=== PATIENT | female | born 1985 | race Caucasian/White ===

== ENCOUNTER 2019-10-08 13:35 | Emergency (ER) | payer OTHER ==
--- NOTE | 2019-10-08 14:19 | XRAY Report ---
Reason: Chest pain Procedure Date: 10/08/2019 Accession Number: [id number] / [id number] Procedure: XR - Chest 1 View X-Ray CPT Code: 26635 Final Report FULL RESULT: EXAM: CHEST RADIOGRAPHY EXAM DATE: 10/08/2019 02:03 PM. CLINICAL HISTORY: Chest pain. COMPARISON: None. TECHNIQUE: 1 view. FINDINGS: Lungs/Pleura: No focal opacities evident. No pleural effusion. No pneumothorax. Mediastinum: Within exam limitations, the cardiomediastinal contour is normal. Other: None. IMPRESSION: Normal single view chest. RADIA
[2019-10-08 14:29] LABS: BASOPHILS % (AUTO) 0.5 %; EOSINOPHILS % (AUTO) 0.5 %; HGB - HEMOGLOBIN 13.8 g/dL (12.0-16.0); LYMPHOCYTES # (AUTO) 1.5 10^3/uL (1.5-3.5); LYMPHOCYTES % (AUTO) 38.7 %; MEAN CORPUSCULAR HEMOGLOBIN 33.4 pg (27.0-31.0); MEAN CORPUSCULAR HGB CONC 33.3 g/dL (32.0-36.0); MEAN CORPUSCULAR VOLUME 100.2 fL (81.0-99.0); MEAN PLATELET VOLUME 10.4 fL (7.9-10.8); MONOCYTES # (AUTO) 0.2 10^3/uL (0.0-1.0); MONOCYTES % (AUTO) 5.9 %; NEUTROPHILS # (AUTO) 2.1 10^3/uL (1.5-6.6); NEUTROPHILS % (AUTO) 54.1 %; PLT - PLATELET COUNT 279 10^3/uL (130-450); RED BLOOD COUNT 4.13 10^6/uL (4.20-5.40); WHITE BLOOD COUNT 3.9 x10^3/uL (4.8-10.8)
[2019-10-08 14:48] LABS: ALBUMIN/GLOBULIN RATIO 1.9 (1.0-2.2); BILIRUBIN,TOTAL 0.5 mg/dL (0.2-1.0); CALCIUM 9.4 mg/dL (8.5-10.3); CREATININE 0.6 mg/dL (0.4-1.0); TOTAL PROTEIN 7.6 g/dL (6.7-8.2)
[2019-10-08] MEDS ORDERED: CHERRY SYRUP 10 ML UDC PO ONE (16:55)
[2019-10-08] MEDS ORDERED: CETIRIZINE 10 MG TABLET PO STA (16:55)
[2019-10-08] MEDS ORDERED: DEXAMETHASONE 10 MG/ML VIAL PO STA (16:55)
--- NOTE | 2019-10-08 16:57 | ED Physician Documentation ---
PD HPI DYSPNEA - Stated complaint Stated Complaint: CHEST TIGHTNESS,SOA,LIGHTHEADED - Chief complaint Chief Complaint: Cardiac - History obtained from History obtained from: Patient - History of Present Illness Timing - onset: How many days ago (several days of feeling dyspnea, lightheaded and heart racing. Has had it brief episodes, not correlated with exertion/activity, for couple of months, minutes to hour at a time. More consistent the past few days. Had some feeling of lightheadedness worse today.) Timing - onset during: Light activity Timing - duration: Minutes, Hours Timing - details: Gradual onset, Intermittant Inciting event(s): No: URI Improved by: Rest Worsened by: No: Exertion Associated symptoms: Palpitations. No: Fever, Cough, Wheezing, Bilateral edema Similar symptoms before: Has not had sx before Recently seen: Not recently seen Review of Systems Constitutional: reports: Fatigue, Weight Loss (poor appetite). denies: Fever, Chills, Myalgias Nose: denies: Rhinorrhea / runny nose, Congestion Throat: denies: Sore throat Cardiac: denies: Chest pain / pressure Respiratory: reports: Dyspnea, Cough GI: denies: Abdominal Pain, Nausea, Vomiting, Diarrhea : denies: Discharge Neurologic: reports: Generalized weakness. denies: Focal weakness, Numbness Psychiatric: denies: Depressed, Anxiety, Insomnia Endocrine: reports: Weight loss. denies: Weight gain, Easy bruising / bleeding Immunocompromised: denies: Immunocompromised PD PAST MEDICAL HISTORY - Past Medical History Past Medical History: No Neuro: None Endocrine/Autoimmune: None - Past Surgical History Past Surgical History: No - Present Medications Home Medications: Ambulatory Orders Medication Instructions Recorded Confirmed Albuterol Sulfate [Albuterol 2 puffs IH QID #1 hfa.aer.ad 10/08/19 Sulfate Hfa] Cetirizine [ZyrTEC] 10 mg PO DAILY #15 tablet 10/08/19 dexAMETHasone [Decadron] 4 mg PO DAILY #5 tablet 10/08/19 - Allergies Allergies/Adverse Reactions: Allergies Allergy/AdvReac Type Severity Reaction Status Date / Time No Known Drug Allergies Allergy Verified 10/08/19 13:47 - Living Situation Living Situation: reports: With spouse/s.o. Living Arrangement: reports: At home - Social History Does the pt smoke?: No Smoking Status: Never smoker Does the pt drink ETOH?: No Does the pt have substance abuse?: No - Family History Family history: denies: Cancer PD ED PE NORMAL - Vitals Vital signs reviewed: Yes - General General: Alert and oriented X 3, No acute distress, Well developed/nourished - HEENT HEENT: Moist mucous membranes, Pharynx benign - Neck Neck: Supple, no meningeal sign, No adenopathy, Thyroid normal - Cardiac Cardiac: RRR, No murmur - Respiratory Respiratory: Clear bilaterally - Abdomen Abdomen: Normal bowel sounds, Soft, Non tender, Non distended, No organomegaly - Female Female : Deferred - Rectal Rectal: Deferred - Back Back: No CVA TTP - Derm Derm: Normal color, Warm and dry - Extremities Extremities: No edema, No calf tenderness / cord - Neuro Neuro: Alert and oriented X 3, No motor deficit, Normal speech Results - Vitals Vitals: Oxygen O2 Source Room air - Labs Labs: Laboratory Tests 10/08/19 10/08/19 10/08/19 14:15 14:15 14:15 WBC 3.9 L RBC 4.13 L Hgb 13.8 Hct 41.4 MCV 100.2 H MCH 33.4 H MCHC 33.3 RDW 12.0 Plt Count 279 MPV 10.4 Neut # (Auto) 2.1 Lymph # (Auto) 1.5 Garza # (Auto) 0.2 Eos # (Auto) 0.0 Baso # (Auto) 0.0 Absolute Nucleated RBC 0.00 Nucleated RBC % 0.0 ESR Sodium 142 Potassium 4.2 Chloride 107 Carbon Dioxide 24 Anion Gap 11.0 BUN 7 Creatinine 0.6 Estimated GFR (MDRD) 113 Glucose 109 H Calcium 9.4 Magnesium Total Bilirubin 0.5 AST 14 ALT 12 Alkaline Phosphatase 35 L Troponin I High Sens 3.5 Total Protein 7.6 Albumin 5.0 Globulin 2.6 Albumin/Globulin Ratio 1.9 Lipase 35 Vitamin B12 TSH 10/08/19 10/08/19 10/08/19 14:15 14:15 14:15 WBC RBC Hgb Hct MCV MCH MCHC RDW Plt Count MPV Neut # (Auto) Lymph # (Auto) [place] # (Auto) Eos # (Auto) Baso # (Auto) Absolute Nucleated RBC Nucleated RBC % ESR 1 Sodium Potassium Chloride Carbon Dioxide Anion Gap BUN Creatinine Estimated GFR (MDRD) Glucose Calcium Magnesium 2.4 Total Bilirubin AST ALT Alkaline Phosphatase Troponin I High Sens Total Protein Albumin Globulin Albumin/Globulin Ratio Lipase Vitamin B12 TSH 0.93 10/08/19 14:15 WBC RBC Hgb Hct MCV MCH MCHC RDW Plt Count MPV Neut # (Auto) Lymph # (Auto) [place] # (Auto) Eos # (Auto) Baso # (Auto) Absolute Nucleated RBC Nucleated RBC % ESR Sodium Potassium Chloride Carbon Dioxide Anion Gap BUN Creatinine Estimated GFR (MDRD) Glucose Calcium Magnesium Total Bilirubin AST ALT Alkaline Phosphatase Troponin I High Sens Total Protein Albumin Globulin Albumin/Globulin Ratio Lipase Vitamin B12 160 L TSH PD MEDICAL DECISION MAKING - ED course Complexity details: reviewed results, considered differential (She has been having dyspnea with some congestion but really not much coughing. No fevers or other cold symptoms per se. She has not had any recent travel. PERC score is negative chest x-ray EKG and blood tests are normal. Thyroid is normal as well. We can treat her for possible allergies as she has had some in the past. Can try some cetirizine and an inhaler and see how it does on her breathing.), d/w patient Departure - Departure Disposition: Home, Self Care Clinical Impression: Dyspnea Qualifiers: Dyspnea type: shortness of breath Qualified Code(s): R06.02 - Shortness of breath Condition: Stable Record reviewed to determine appropriate education?: Yes Instructions: ED Dyspnea Shortness of Breath Follow-Up: [facility] [Provider Group] Prescriptions: Albuterol Sulfate [Albuterol Sulfate Hfa] 2 puffs IH QID #1 hfa.aer.ad Cetirizine [ZyrTEC] 10 mg PO DAILY #15 tablet dexAMETHasone [Decadron] 4 mg PO DAILY #5 tablet Comments: Your EKG, chest x-ray, blood tests are normal including blood count electrolytes kidney function thyroid screen and inflammatory markers. Also no signs of heart muscle irritation. At this point we can presume may be some allergies and an effect in the bronchials. I would suggest trying a antihistamine such as cetirizine daily or every other day. Decadron steroid for bronchial inflammation daily for 5 more days. Use albuterol inhaler 2 puffs 3 or 4 times a day for the next week or so. Follow-up with your primary care in about a week, call for an appointment. Discharge Date/Time: 10/08/19 17:09
[2019-10-08 17:11] VITALS: BP 128/65
== END 2019-10-08 17:09 | disposition home or self-care (01) ==
LOC: ED 13:35
DX: R06.02 Shortness of breath (principal)
CPT/HCPCS: 36415; 71045; 82607; 82652; 83690; 83735; 84484; 85651; 93005; 99284; A9270; 80053; 84443; 85025

== ENCOUNTER 2020-06-02 00:59 | Emergency (ER) | payer OTHER ==
--- NOTE | 2020-06-02 01:23 | ED Physician Documentation ---
PD HPI SYNCOPE - Stated complaint Stated Complaint: DIZZY, VISION CHANGES - Chief complaint Chief Complaint: Neuro - History obtained from History obtained from: Patient - History of Present Illness Timing - onset: Enter time (23:30) Associated symptoms: Vision changes, Nausea / vomiting (nausea, no vomiting) Contributing factors: None Injury occurred: None Pain level max: 0 Pain level now: 0 Similar symptoms before: Has not had sx before Recently seen: Not recently seen - Additional information Additional information: 11:30 PM tonight while at rest at home watching TV, sudden onset lightheadedness, mild nausea, dimmed peripheral ("tunnel") vision. She felt as though she might pass out. She felt some improvement when walking around but symptoms waxed and waned, subsequently developed generalized tremulousness. She did not lose consciousness. Symptoms have resolved by the time of this ED evaluation Review of Systems Constitutional: reports: Sweats. denies: Fever, Chills Cardiac: reports: Reviewed and negative Respiratory: reports: Reviewed and negative GI: reports: Nausea. denies: Abdominal Pain, Vomiting : denies: Dysuria, Frequency, Now EGA Neurologic: reports: Near syncope. denies: Generalized weakness, Focal weakness, Numbness, Headache PD PAST MEDICAL HISTORY - Past Medical History Neuro: None Endocrine/Autoimmune: None - Past Surgical History Past Surgical History: No - Present Medications Home Medications: Ambulatory Orders Medication Instructions Recorded Confirmed Omeprazole 20 mg PO DAILY 06/02/20 06/02/20 - Allergies Allergies/Adverse Reactions: Allergies Allergy/AdvReac Type Severity Reaction Status Date / Time No Known Drug Allergies Allergy Verified 06/02/20 01:12 - Social History Does the pt smoke?: No Smoking Status: Never smoker Does the pt drink ETOH?: No Does the pt have substance abuse?: No PD ED PE NORMAL - Vitals Vital signs reviewed: Yes - General General: Alert and oriented X 3, No acute distress, Well developed/nourished - HEENT HEENT: PERRL, EOMI, Moist mucous membranes - Neck Neck: Supple, no meningeal sign - Cardiac Cardiac: RRR, No murmur, No gallop, No rub - Respiratory Respiratory: No respiratory distress, Clear bilaterally - Abdomen Abdomen: Soft, Non tender - Extremities Extremities: No edema - Neuro Neuro: Alert and oriented X 3, pivot end polisher 2-12 intact, No motor deficit, No sensory deficit, Normal speech Eye Opening: Spontaneous Motor: Obeys Commands Verbal: Oriented GCS Score: 15 Results - Vitals Vitals: Oxygen O2 Source Room air - EKG (time done) No standard instances Rate: Rate (enter#) (78) Rhythm: NSR [place]: Normal Intervals: Normal [place] QRS: Normal Ischemia: Normal ST segments - Labs Labs: Laboratory Tests 06/02/20 06/02/20 06/02/20 01:40 01:40 02:30 WBC 8.4 RBC 3.71 L Hgb 12.5 Hct 37.0 MCV 99.7 H MCH 33.7 H MCHC 33.8 RDW 12.1 Plt Count 244 MPV 10.1 Neut # (Auto) 6.6 Lymph # (Auto) 1.3 L [place] # (Auto) 0.4 Eos # (Auto) 0.0 Baso # (Auto) 0.0 Absolute Nucleated RBC 0.00 Nucleated RBC % 0.0 Sodium Potassium Chloride Carbon Dioxide Anion Gap BUN Creatinine Estimated GFR (MDRD) Glucose Calcium Total Bilirubin AST ALT Alkaline Phosphatase Total Protein Albumin Globulin Albumin/Globulin Ratio Lipase Urine Color YELLOW Urine Clarity CLEAR Urine pH 6.0 Ur Specific [place] 1.010 1.010 Urine Protein NEGATIVE Urine Glucose (UA) NEGATIVE Urine Ketones NEGATIVE Urine Occult Blood NEGATIVE Urine Nitrite NEGATIVE Urine Bilirubin NEGATIVE Urine Urobilinogen 0.2 (NORMAL) Ur Leukocyte Esterase NEGATIVE Ur Microscopic Review NOT INDICATED Urine Culture Comments NOT INDICATED Urine HCG, Qual NEGATIVE 06/02/20 02:30 WBC RBC Hgb Hct MCV MCH MCHC RDW Plt Count MPV Neut # (Auto) Lymph # (Auto) [place] # (Auto) Eos # (Auto) Baso # (Auto) Absolute Nucleated RBC Nucleated RBC % Sodium 139 Potassium 3.7 Chloride 106 Carbon Dioxide 24 Anion Gap 9.0 BUN 9 Creatinine 0.5 Estimated GFR (MDRD) 139 Glucose 111 H Calcium 8.8 Total Bilirubin 0.6 AST 11 ALT 12 Alkaline Phosphatase 41 L Total Protein 7.0 Albumin 4.7 Globulin 2.3 Albumin/Globulin Ratio 2.0 Lipase 33 Urine Color Urine Clarity Urine pH Ur Specific [place] Urine Protein Urine Glucose (UA) Urine Ketones Urine Occult Blood Urine Nitrite Urine Bilirubin Urine Urobilinogen Ur Leukocyte Esterase Ur Microscopic Review Urine Culture Comments Urine HCG, Qual PD MEDICAL DECISION MAKING - ED course Complexity details: reviewed results, re-evaluated patient, considered differential, d/w patient ED course: remained asymptomatic during ED stay. Reassuring test results including EKG and blood tests. Departure - Departure Disposition: 01 Home, Self Care Clinical Impression: Near syncope Condition: Good Instructions: ED Near Syncope Unkn Discharge Date/Time: 06/02/20 03:05
[2020-06-02 01:52] LABS: BILIRUBIN,URINE NEGATIVE (NEGATIVE); GLUCOSE, URINE (UA) NEGATIVE (NEGATIVE); KETONES,URINE (UA) NEGATIVE (NEGATIVE); LEUKOCYTE ESTERASE, URINE NEGATIVE (NEGATIVE); NITRITE,URINE NEGATIVE (NEGATIVE); OCCULT BLOOD,URINE NEGATIVE (NEGATIVE); PROTEIN,URINE NEGATIVE (NEGATIVE); UROBILINOGEN,URINE 0.2 (NORMAL) E.U./dL (NORMAL)
[2020-06-02 01:53] LABS: CLARITY,URINE CLEAR (CLEAR)
[2020-06-02 02:33] LABS: BASOPHILS % (AUTO) 0.2 %; EOSINOPHILS % (AUTO) 0.5 %; HGB - HEMOGLOBIN 12.5 g/dL (12.0-16.0); LYMPHOCYTES # (AUTO) 1.3 10^3/uL (1.5-3.5); LYMPHOCYTES % (AUTO) 15.4 %; MEAN CORPUSCULAR HEMOGLOBIN 33.7 pg (27.0-31.0); MEAN CORPUSCULAR HGB CONC 33.8 g/dL (32.0-36.0); MEAN CORPUSCULAR VOLUME 99.7 fL (81.0-99.0); MEAN PLATELET VOLUME 10.1 fL (7.9-10.8); MONOCYTES # (AUTO) 0.4 10^3/uL (0.0-1.0); MONOCYTES % (AUTO) 4.8 %; NEUTROPHILS # (AUTO) 6.6 10^3/uL (1.5-6.6); NEUTROPHILS % (AUTO) 78.5 %; PLT - PLATELET COUNT 244 10^3/uL (130-450); RED BLOOD COUNT 3.71 10^6/uL (4.20-5.40); RED CELL DISTRIBUTION WIDTH 12.1 % (12.0-15.0); WHITE BLOOD COUNT 8.4 x10^3/uL (4.8-10.8)
[2020-06-02 02:45] LABS: ALBUMIN 4.7 g/dL (3.2-5.5); BILIRUBIN,TOTAL 0.6 mg/dL (0.2-1.0); CALCIUM 8.8 mg/dL (8.5-10.3); CREATININE 0.5 mg/dL (0.4-1.0)
[2020-06-02 02:47] LABS: HCG UR QUAL NEGATIVE
[2020-06-02 02:53] VITALS: BP 114/70
== END 2020-06-02 03:05 | disposition home or self-care (01) ==
LOC: EDUNIT# → ED 00:59
DX: R55 Syncope and collapse (principal)
CPT/HCPCS: 36415; 80053; 81001; 81003; 81025; 83690; 85025; 87086; 93005; 99282; 99283

== ENCOUNTER 2023-12-14 09:10 | Outpatient (CLI) | payer OTHER ==
--- NOTE | 2023-12-14 10:12 | XRAY Report ---
PROCEDURE: Hip w/Pelvis 2-3V RT INDICATIONS: RIGHT HIP PAIN TECHNIQUE: 2 views of the hip were acquired. COMPARISON: None. FINDINGS: Bones: No fractures or dislocations. Mild osteophytosis bilaterally. No significant joint space true rowing. No suspicious bony lesions. Soft tissues: No suspicious soft tissue calcifications or masses. IMPRESSION: No acute bony abnormality. Mild osteophytosis of the bilateral hips without significant joint space n arrowing. Reviewed by: Nik Sommer MD on 12/14/2023 10:10 AM PDT Approved by: Nik Sommer MD on 12/14/2023 10:10 AM PDT Station ID: [id number]
== END 2023-12-14 09:11 | disposition home or self-care (01) ==
LOC: DI 09:10
PROVIDERS: ATTEND Orthopaedic Surgery
DX: M25.752 Osteophyte, left hip (principal); M25.751 Osteophyte, right hip